=== PATIENT | female | born 1940 | race Two or more races ===

== ENCOUNTER 2021-09-25 11:54 | Inpatient (IN) | payer OTHER ==
[~2021-09-25] VITALS: Ht 160 cm; Wt 63.5 kg
[2021-09-25] MEDS ORDERED: CHILDREN'S ASPI81 MG PO (12:00)
[2021-09-30] MEDS ORDERED: XOPENEX HFA15 GM IH (15:50)
== END 2021-10-03 22:38 | disposition home or self-care (01) | DRG 65 ==
LOC: ER 11:54 → ICU-2 23:31 → ICU 09-27 00:31 → MEDI 10-01 19:06 → MEDJ 10-01 20:48
PROVIDERS: ADMIT Internal Medicine; ATTEND Internal Medicine
PROC: BW28ZZZ Computerized Tomography (CT Scan) of Head (ICD-10-PCS; 2021-09-25)
PROC: B030ZZZ Magnetic Resonance Imaging (MRI) of Brain (ICD-10-PCS; 2021-09-25)
PROC: B24BYZZ Ultrasonography of Heart with Aorta using Other Contrast (ICD-10-PCS; 2021-09-27)
PROC: B020ZZZ Computerized Tomography (CT Scan) of Brain (ICD-10-PCS; 2021-09-28)
PROC: 4A12X4Z Monitoring of Cardiac Electrical Activity, External Approach (ICD-10-PCS; principal; 2021-10-02)
DX: I63.512 Cerebral infarction due to unspecified occlusion or stenosis of left middle cerebral artery (principal); I48.20 Chronic atrial fibrillation, unspecified; I69.320 Aphasia following cerebral infarction; J44.9 Chronic obstructive pulmonary disease, unspecified
CPT/HCPCS: 70551